=== PATIENT | female | born 1985 | race African-American/Black ===

== ENCOUNTER 2023-12-13 19:41 | Emergency (ER) | payer MEDICAID, MEDICARE ==
[~2023-12-13] VITALS: Ht 170.2 cm; Wt 140.0 kg
[2023-12-13 19:45] VITALS: BP 160/105; PULSE 89; RESP 16; TEMP 98.2; O2SAT 99
[2023-12-13 21:12] LABS: BASOPHILS % 0.6 % (0.0-2.0); EOSINOPHILS % 2.1 % (0.0-5.0); HEMATOCRIT. 36.6 % (36.0-48.0); HEMOGLOBIN. 12.4 g/dL (12.0-16.0); LYMPHOCYTES % 41.5 % (20.0-50.0); MEAN CORPUSCULAR HEMOGLOBIN 32.7 pg (28.0-32.0); MEAN CORPUSCULAR VOLUME 96.4 fL (81.0-99.0); MEAN PLATELET VOLUME 7.8 fl (7.4-10.4); MONOCYTES % 6.1 % (2.0-8.0); NEUTROPHILS % 49.7 % (40.0-76.0); PLATELET 278 x1000/uL (130-400); RED CELL DISTRIBUTION WIDTH 14.4 % (11.6-14.6); WHITE BLOOD COUNT 6.3 x1000/uL (4.5-11.0)
[2023-12-13 21:16] LABS: CHLORIDE 109 mEq/L (98-107); POTASSIUM 3.9 mEq/L (3.5-5.1); SODIUM 140 mEq/L (136-145)
[2023-12-13 21:17] LABS: CALCIUM 9.5 mg/dL (8.7-10.4); CARBON DIOXIDE 25 mEq/L (21-32)
[2023-12-13 21:19] LABS: HCG SCREEN NEGATIVE
[2023-12-13 21:22] LABS: GLUCOSE 95 mg/dL (70-105); UREA NITROGEN BLOOD 8 mg/dL (9-23)
[2023-12-13 21:23] LABS: ETHANOL BLOOD < 10 mg/dL (<10)
[2023-12-13] MEDS ORDERED: TOPIRAMATE 100MG TABLET PO SCH (21:30)
[2023-12-13] MEDS ORDERED: TOP100 MT (21:43)
== END 2023-12-13 21:45 | disposition home or self-care (01) ==
LOC: ER 19:41
DX: G40.909 Epilepsy, unspecified, not intractable, without status epilepticus (principal); E11.9 Type 2 diabetes mellitus without complications; I10 Essential (primary) hypertension; Z88.0 Allergy status to penicillin; Z88.5 Allergy status to narcotic agent
CPT/HCPCS: 36415; 80048; 80320; 84703; 85025; 99283; G0480

== ENCOUNTER 2024-04-02 07:46 | Emergency (ER) | payer MEDICARE, MEDICAID ==
[~2024-04-02] VITALS: Ht 172.7 cm; Wt 60.0 kg
[~2024-04-02 07:46] MED LIST: TOP100 MT
[2024-04-02 07:48] VITALS: O2SAT 97
[2024-04-02 08:16] LABS: BASOPHILS % 0.8 % (0.0-2.0); EOSINOPHILS % 2.5 % (0.0-5.0); HEMATOCRIT. 37.2 % (36.0-48.0); HEMOGLOBIN. 12.2 g/dL (12.0-16.0); LYMPHOCYTES % 34.4 % (20.0-50.0); MEAN CORPUSCULAR HEMOGLOBIN 31.5 pg (28.0-32.0); MEAN CORPUSCULAR HGB CONC 32.8 g/dL (31.0-37.0); MEAN CORPUSCULAR VOLUME 96.2 fL (81.0-99.0); MEAN PLATELET VOLUME 7.4 fl (7.4-10.4); MONOCYTES % 8.5 % (2.0-8.0); NEUTROPHILS % 53.8 % (40.0-76.0); PLATELET 284 x1000/uL (130-400); RED BLOOD CELL COUNT 3.87 mill/uL (4.2-5.4); RED CELL DISTRIBUTION WIDTH 14.6 % (11.6-14.6); WHITE BLOOD COUNT 6.8 x1000/uL (4.5-11.0)
[2024-04-02] MEDS: LEVETIRACETAM 500MG TABLET PO ONE (08:17)
[2024-04-02 08:20] VITALS: TEMP 36.55848
[2024-04-02] MEDS: LEVETIRACETAM 500MG PREMIX 100 ML IV ONE (08:20)
[2024-04-02 08:28] LABS: CHLORIDE 111 mEq/L (98-107); POTASSIUM 3.7 mEq/L (3.5-5.1); SODIUM 142 mEq/L (136-145)
[2024-04-02 08:29] LABS: CALCIUM 9.8 mg/dL (8.7-10.4); CARBON DIOXIDE 26 mEq/L (21-32)
[2024-04-02 08:34] LABS: GLUCOSE 97 mg/dL (70-105); UREA NITROGEN BLOOD 10 mg/dL (9-23)
[2024-04-02 08:49] LABS: HCG SCREEN NEGATIVE
[2024-04-02 08:50] LABS: ETHANOL BLOOD < 10 mg/dL (<10)
[2024-04-02 10:42] VITALS: BP 131/77; PULSE 78; RESP 13; O2SAT 99
[2024-04-02] MEDS ORDERED: ACETAMINOPHEN 325MG TABLET PO ONE (10:45)
== END 2024-04-02 10:54 | disposition home or self-care (01) ==
LOC: ER 07:46
DX: G40.909 Epilepsy, unspecified, not intractable, without status epilepticus (principal); E11.9 Type 2 diabetes mellitus without complications; I10 Essential (primary) hypertension; Z88.0 Allergy status to penicillin; Z88.5 Allergy status to narcotic agent
CPT/HCPCS: 36415; 80048; 80320; 84703; 85025; 99284; G0480